=== PATIENT | male | born 2000 | race Caucasian/White ===

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

== ENCOUNTER 2019-03-23 11:02 | Emergency (ER) | payer OTHER ==
[~2019-03-23] VITALS: Ht 162.6 cm; Wt 59.1 kg
[~2019-03-23 11:02] MED LIST changes: -DENIES; +DEPRESSION MED PO; +DIPH25TA2 PO
[2019-03-23 11:35] VITALS: BP 127/70
== END 2019-03-23 12:02 | disposition home or self-care (01) ==
LOC: EMS 11:04
DX: M54.12 Radiculopathy, cervical region (principal); F32.9 Major depressive disorder, single episode, unspecified; Z79.899 Other long term (current) drug therapy